=== PATIENT | male | born 1980 | race American Indian/Alaskan Native ===

== ENCOUNTER 2018-06-20 04:07 | Emergency (ER) | payer BC ==
[2018-06-20 04:25] VITALS: TEMP 98.7; O2SAT 100
--- NOTE | 2018-06-20 04:44 | ED PDOC ---
Arrival/HPI - General Chief Complaint: Abdominal Pain Time Seen by Provider: 06/20/18 04:09 Historian: Patient - History of Present Illness Narrative History of Present Illness (Text): 06/20/18 04:44 Colton Thomas is a 38 year old male, with no significant past medical history, who presents to the ED complaining of RUQ abdominal pain for 1 week. Patient notes he has been experiencing associated cramping and diarrhea yesterday. Patient denies any fever, chills, chest pain, shortness of breath, nausea, vomiting, urinary symptoms, back pain, neck pain, headache, dizziness, or any other complaints. Time/Duration: 1 week Symptom Onset: Gradual Symptom Course: Unchanged Activities at Onset: Light Context: Home Past Medical History - Provider Review Nursing Documentation Reviewed: Yes - Psychiatric Hx Substance Use: No Family/Social History - Physician Review Nursing Documentation Reviewed: Yes Family/Social History: Unknown Family HX Smoking Status: Never Smoked Hx Alcohol Use: No (last drink was 3 months) Hx Substance Use: No Allergies/Home Meds Allergies/Adverse Reactions: Allergies No Known Allergies Allergy (Verified 06/20/18 04:19) Review of Systems - Physician Review All systems were reviewed & negative as marked: Yes - Review of Systems Constitutional: Normal. absent: Fevers Eyes: Normal ENT: Normal Respiratory: Normal. absent: SOB, Cough Cardiovascular: Normal. absent: Chest Pain Gastrointestinal: Abdominal Pain, Diarrhea. absent: Nausea, Vomiting Genitourinary Male: Normal. absent: Dysuria, Frequency, Hematuria, Urinary Output Changes Musculoskeletal: Normal. absent: Back Pain, Neck Pain Skin: Normal. absent: Rash Neurological: Normal. absent: Headache, Dizziness Endocrine: Normal Hemo/Lymphatic: Normal Psychiatric: Normal Physical Exam Vital Signs Reviewed: Yes Vital Signs Temp Pulse Resp BP Pulse Ox 06/20/18 04:24 98.7 F 68 18 116/78 100 Temperature: Afebrile Blood Pressure: Normal Pulse: Regular Respiratory Rate: Normal Appearance: Positive for: Well-Appearing, Non-Toxic, Comfortable Pain Distress: None Mental Status: Positive for: Alert and Oriented X 3 - Systems Exam Head: Present: Atraumatic, Normocephalic Pupils: Present: PERRL Extroacular Muscles: Present: EOMI Conjunctiva: Present: Normal Mouth: Present: Moist Mucous Membranes Neck: Present: Normal Range of Motion Respiratory/Chest: Present: Clear to Auscultation, Good Air Exchange. No: Respiratory Distress, Accessory Muscle Use Cardiovascular: Present: Regular Rate and Rhythm, Normal S1, S2. No: Murmurs Abdomen: No: Tenderness, Distention, Peritoneal Signs Back: Present: Normal Inspection Upper Extremity: Present: Normal Inspection. No: Cyanosis, Edema Lower Extremity: Present: Normal Inspection. No: Edema Neurological: Present: GCS=15, CN II-XII Intact, Speech Normal Skin: Present: Warm, Dry, Normal Color. No: Rashes Psychiatric: Present: Alert, Oriented x 3, Normal Insight, Normal Concentration Medical Decision Making ED Course and Treatment: 06/20/18 04:41 Impression: 38 year old male complaining of RUQ abdominal pain, cramping, and diarrhea. Plan: -- Labs, lipase -- Urinalysis -- IV fluids -- Toradol -- Reassess and disposition Prior Visits: Notes and results from previous visits were reviewed. Progress Notes: - Transfer of Care Patient signed out to Dr:: roseanna ct and dispo - Scribe Statement The provider has reviewed the documentation as recorded by the Amandeepibtheo Espinoza Provider Scribe Attestation: All medical record entries made by the Scribe were at my direction and personally dictated by me. I have reviewed the chart and agree that the record accurately reflects my personal performance of the history, physical exam, medical decision making, and the department course for this patient. I have also personally directed, reviewed, and agree with the discharge instructions and disposition. Disposition/Present on Arrival - Present on Arrival Any Indicators Present on Arrival: No History of DVT/PE: No History of Uncontrolled Diabetes: No Urinary Catheter: No History of Decub. Ulcer: No History Surgical Site Infection Following: None - Disposition Have Diagnosis and Disposition been Completed?: Yes Diagnosis: Enteritis Disposition: HOME/ ROUTINE Disposition Time: 07:00 Condition: STABLE Discharge Instructions (ExitCare): Diarrhea in Adolescents and Adults Additional Instructions: stay well hydrated (water). return for any new or worsening symptoms. 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 Prescriptions: Ondansetron [Zofran] 4 mg PO Q8H #12 tab Referrals: Amanuel Pool DO [Primary Care Provider] - Follow up with primary Forms: [employer] (Upper Sorbian), WORK NOTE
[2018-06-20] MEDS ORDERED: Sodium Chloride 0.9% 1,000 ML IV STA (04:45)
[2018-06-20 05:31] LABS: BASO # 0.03 K/mm3 (0.0-2.0); BASO % 0.7 % (0.0-3.0); EOS # 0.1 (0.0-0.7); EOS % 2.1 % (1.5-5.0); HEMOGLOBIN 15.4 g/dL (14.0-18.0); LYMPH # 2.2 (1.2-3.4); LYMPH % 52.3 % (22.0-35.0); MEAN CELL VOLUME 90.5 fl (80.0-105.0); MEAN CORPUSCULAR HEMOGLOBIN 30.4 pg (25.0-35.0); MEAN CORPUSCULAR HGB CONC 33.6 g/dl (31.0-37.0); MEAN PLATELET VOLUME 9.7 fl (7.0-11.0); MONO # 0.3 (0.1-0.6); RBC 5.06 10^6/uL (3.5-6.1); RED CELL DISTRIBUTION WIDTH 12.4 % (11.5-14.5); WHITE BLOOD COUNT 4.3 10^3/uL (4.5-11.0)
[2018-06-20 05:34] LABS: INR 1.08; PROTHROMBIN TIME 12.2 SECONDS (9.4-12.5)
[2018-06-20 05:39] LABS: ALB/GLOB RATIO 1.4 (1.1-1.8); ALBUMIN 4.5 g/dL (3.0-4.8); BLOOD UREA NITROGEN 14 mg/dL (7-21); CALCIUM 9.2 mg/dL (8.4-10.5); GFR NON-AFRICAN AMERICAN > 60; LIPASE 360 U/L (23-300)
[2018-06-20 06:06] LABS: ALT/SGPT 20 U/L (7-56); AST/SGOT 36 U/L (17-59)
[2018-06-20 06:35] LABS: URINE BILIRUBIN NEGATIVE (NEGATIVE); URINE BLOOD NEGATIVE (NEGATIVE); URINE GLUCOSE (UA) NEGATIVE (NEGATIVE); URINE LEUKOCYTE ESTERASE NEGATIVE Leu/uL (NEGATIVE); URINE PROTEIN NEGATIVE mg/dL (<30 mg/dL); URINE UROBILINOGEN 0.2 E.U./dL (<1 E.U./dL)
[2018-06-20 06:36] LABS: URINE APPEARANCE CLEAR (CLEAR); URINE COLOR YELLOW (YELLOW)
[2018-06-20] MEDS ORDERED: Iohexol 350 MG/100 ML VIAL ONE (06:41)
[2018-06-20 07:48] VITALS: RESP 18
--- NOTE | 2018-06-20 09:02 | ED PDOC ---
Physical Exam Vital Signs Temp Pulse Resp BP Pulse Ox 06/20/18 07:48 67 18 118/70 100 06/20/18 06:34 71 14 126/79 100 06/20/18 04:24 98.7 F 68 18 116/78 100 Medical Decision Making ED Course and Treatment: 06/20/18 07:00 Case endorsed to me by Dr. Walker. Abdomen/Pelvis CT with contrast pending. 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 Patient reports onset of diarrheal illness but stools nonbloody, no fever, no abnormal po intake, no vomiting. 06/20/18 08:58 Abdomen/Pelvis CT with contrast -- Fluid-filled stomach -- Scattered fluid-filled small bowel loops -- Suspected uncomplicated gastroenteritis -- Diffuse thickening of the wall of the bladder -- 4.2 cm hypodese lesion of the right hepatic lobe. probably benign. Further evaluation is limited on this single phase CT exam 06/20/18 09:23 patient was feeling well at the time of discharge, abd pain tolerable, labs ok, CT only shows enteritis, abx not indicated in this likely viral illness. pt discharged in stable condition and encouraged to follow up with pcp/GI. 06/20/18 09:43 - Lab Interpretations Lab Results: PT 12.2 SECONDS (9.4-12.5) 06/20/18 04:35 INR 1.08 06/20/18 04:35 APTT 39.0 Seconds (26.9-38.3) H 06/20/18 04:35 Total Bilirubin 1.4 mg/dL (0.2-1.3) H 06/20/18 04:35 AST 36 U/L (17-59) 06/20/18 04:35 ALT 20 U/L (7-56) 06/20/18 04:35 Alkaline Phosphatase 58 U/L (38-126) 06/20/18 04:35 Total Protein 7.7 g/dL (5.8-8.3) 06/20/18 04:35 Albumin 4.5 g/dL (3.0-4.8) 06/20/18 04:35 Globulin 3.2 gm/dL 06/20/18 04:35 Albumin/Globulin Ratio 1.4 (1.1-1.8) 06/20/18 04:35 Lipase 360 U/L (23-300) H 06/20/18 04:35 Urine Color Yellow (YELLOW) 06/20/18 06:15 Urine Appearance Clear (CLEAR) 06/20/18 06:15 Urine pH 6.0 (4.7-8.0) 06/20/18 06:15 Ur Specific [place] 1.020 (1.005-1.035) 06/20/18 06:15 Urine Protein Negative mg/dL (<30 mg/dL) 06/20/18 06:15 Urine Glucose (UA) Negative mg/dL (NEGATIVE) 06/20/18 06:15 Urine Ketones Trace mg/dL (NEGATIVE) H 06/20/18 06:15 Urine Blood Negative (NEGATIVE) 06/20/18 06:15 Urine Nitrate Negative (NEGATIVE) 06/20/18 06:15 Urine Bilirubin Negative (NEGATIVE) 06/20/18 06:15 Urine Urobilinogen 0.2 E.U./dL (<1 E.U./dL) 06/20/18 06:15 Ur Leukocyte Esterase Negative Beto/uL (NEGATIVE) 06/20/18 06:15 - RAD Interpretation Radiology Orders: 06/20/18 06:27 ABD & PELVIS IV CONTRAST ONLY [CT] Stat - Medication Orders Current Medication Orders: Sodium Chloride (Sodium Chloride 0.9%) 1,000 mls @ 100 mls/hr IV .Q10H STA Stop: 06/20/18 14:44 Last Admin: 06/20/18 04:56 Dose: 100 mls/hr eMAR Start Stop Document 06/20/18 04:56 EB (Rec: 06/20/18 04:56 [place] [id number]) Intravenous Solution Start Date 06/20/18 Start Time 04:56 Discontinued Medications Ketorolac Tromethamine (Toradol) 15 mg IVP STAT STA Stop: 06/20/18 04:46 Last Admin: 06/20/18 04:55 Dose: 15 mg MAR Pain Assessment Document 06/20/18 04:55 EB (Rec: 06/20/18 04:56 [id number] Pain Reassessment Is this a pain reassessment? No Sleep Is patient sleeping during reassessment? No Presence of Pain Presence of Pain Yes Pain Scale Used Protocol: PSCALES Pain Scale Used Numeric Location Left, Right or Bilateral Right Upper or Lower Upper Pain Location Body Site Abdomen Description Description Intermittent Intensity of Pain at present 6 IVP Administration Document 06/20/18 04:55 EB (Rec: 06/20/18 04:[address] [id number] Charges for Administration # of IVP Administrations 1 Re-Assess: PETERSON Pain Assessment Document 06/20/18 05:55 EB (Rec: 06/20/18 06:[address] [id number] Pain Reassessment Is this a pain reassessment? Yes Sleep Is patient sleeping during reassessment? No Presence of Pain Presence of Pain No - Scribe Statement The provider has reviewed the documentation as recorded by the Julio Miller All medical record entries made by the Amandeepibtheo were at my direction and personally dictated by me. I have reviewed the chart and agree that the record accurately reflects my personal performance of the history, physical exam, medical decision making, and the department course for this patient. I have also personally directed, reviewed, and agree with the discharge instructions and disposition. Disposition/Present on Arrival - Present on Arrival Any Indicators Present on Arrival: No History of DVT/PE: No History of Uncontrolled Diabetes: No Urinary Catheter: No History of Decub. Ulcer: No History Surgical Site Infection Following: None - Disposition Have Diagnosis and Disposition been Completed?: Yes Diagnosis: Enteritis Disposition: HOME/ ROUTINE Disposition Time: 09:44 Patient Plan: Discharge Condition: STABLE Discharge Instructions (ExitCare): Diarrhea in Adolescents and Adults Additional Instructions: stay well hydrated (water). return for any new or worsening symptoms. 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 Prescriptions: Ondansetron [Zofran] 4 mg PO Q8H #12 tab Referrals: Amanuel Pool DO [Primary Care Provider] - Follow up with primary Forms: [employer] (Serbian), WORK NOTE
[2018-06-20 09:08] VITALS: BP 126/74; PULSE 65
--- NOTE | 2018-06-20 09:12 | CT ---
Date of service: 06/20/2018 PROCEDURE: CT Abdomen and Pelvis with contrast HISTORY: Stomach pain, abdominal pain. COMPARISON: Yet light TECHNIQUE: Intravenous contrast dose: 95 cc Omnipaque 350. Radiation dose: Total exam DLP = 180.43. mGy-cm. This CT exam was performed using one or more of the following dose reduction techniques: Automated exposure control, adjustment of the mA and/or kV according to patient size, and/or use of iterative reconstruction technique. FINDINGS: LOWER THORAX: Unremarkable. LIVER: Mass in segment 7 of the liver 3.2 x 3.9 cm. Peripheral vascularity noted. Findings are likely, but not diagnostic of benign lesion such as hemangioma. GALLBLADDER AND BILE DUCTS: Cholelithiasis without CT evidence of acute cholecystitis. PANCREAS: Unremarkable. No gross lesion or ductal dilatation. SPLEEN: Unremarkable. ADRENALS: Unremarkable. No mass. KIDNEYS AND URETERS: Unremarkable. No hydronephrosis. No solid mass. VASCULATURE: Unremarkable. No aortic aneurysm. No atherosclerotic calcification or mural plaque present. BOWEL: Constipation without fecal impaction or obstruction. APPENDIX: A normal appendix is visualized in it's entirety. PERITONEUM: Unremarkable. No free fluid. No free air. LYMPH NODES: Unremarkable. No enlarged lymph nodes. BLADDER: Unremarkable. REPRODUCTIVE: Unremarkable. BONES: No acute fracture. OTHER FINDINGS: None. IMPRESSION: Benign-appearing lesion right hepatic lobe. Elective follow-up recommended. This would include MRI, multiphasic CT or ultrasound. Cholelithiasis without CT evidence of acute cholecystitis. Concordant findings (preliminary report) provided by [facility].
== END 2018-06-20 09:09 | disposition home or self-care (01) ==
LOC: ED 04:07
DX: K52.9 Noninfective gastroenteritis and colitis, unspecified (principal)
CPT/HCPCS: 74177; 80053; 81003; 83690; 83735; 85025; 85610; 85730; 96374; 99285; J1885; J7030; Q9967